=== PATIENT | male | born 1995 | race Two or more races ===

== ENCOUNTER 2024-09-05 11:51 | Emergency (ER) | payer SELFPAY ==
[2024-09-05 11:52] VITALS: BMI 27.2
[2024-09-05 12:06] VITALS: BP 175/111; PULSE 74; RESP 16; TEMP 37.2; O2SAT 97
--- NOTE | 2024-09-05 12:11 | XR_ITS ---
Examination: CT brain head without contrast. 2-D sagittal coronal reconstructions Date and time of exam:September 05, 2024 at 1250 hours INDICATIONS: Injury to the top of the head with laceration and head pain today CTDI: vol (mGy):50.4 DLP: (mGycm):1025 Technique: Multiple CT axial sections of the brain have been obtained, 5 mm slice thickness. Contrast has not been administered. 2-D sagittal, coronal reconstructions have been obtained Low dose protocols were performed. One or more of the following dose reduction techniques were used; automated exposure control, adjustment of the mA and/or KV according to patient size, use of iterative reconstruction technique. Findings: No significant ventricular enlargement. Intra-axial or extra-axial hemorrhage density is not seen. No mass effect or midline shift Basal cisterns are not remarkable. Fourth ventricle is midline. Cranial vault intact. Impression: Negative for acute hemorrhage, mass effect or midline shift
[2024-09-05 12:22] VITALS: BP 175/111; PULSE 74
[2024-09-05] MEDS: cloNIDine HCL 0.1 MG TABLET PO (12:22)
[2024-09-05] MEDS: ACETAMINOPHEN 500 MG TABLET 1000 MG PO (12:23)
[2024-09-05] MEDS: DIPHTH,PERTUSS(ACELL),TET VAC 0.5 ML SYR- ADULT IMi (12:23)
[2024-09-05 12:37] LABS: Basophils # (Auto) 0.1 Thou/mm3 (0.0-0.2); Basophils % (Auto) 1 % (0-2.5); Eosinophils % (Auto) 0 % (0-10); Hemoglobin 15.2 g/dL (13.5-16.0); Immature Granulocytes % (Auto) 0 % (0-0); Immature Granulocytes Auto 0.03 Thou/mm3 (0.00-0.00); Lymphocytes # (Auto) 1.3 Thou/mm3 (1.0-4.8); Lymphocytes % (Auto) 15 % (10-50); Mean Corpuscular HGB Conc 36.2 g/dl (31.0-37.0); Mean Corpuscular Volume 88 fL (80-100); Monocytes # (Auto) 0.8 Thou/mm3 (0.0-0.8); Monocytes % (Auto) 10 % (0-12); Neutrophils # (Auto) 6.4 Thou/mm3 (1.8-7.7); Neutrophils % (Auto) 74 % (37-80); Nucleated Red Blood Cell % 0 /100 WBC (0); Platelet Count 285 Thou/mm3 (140-440); RDW Standard Deviation 38.6 fL (35.1-43.9); Red Blood Count 4.75 Miln/mm3 (4.50-5.90); White Blood Count 8.6 Thou/mm3 (3.8-10.6)
[2024-09-05 13:03] LABS: Alanine Aminotransferase 50 U/L (10-49); Albumin, Serum 4.8 gm/dL (3.5-5.0); Albumin/Globulin Ratio 1.7 (1.2-2.2); Alkaline Phosphatase 88 U/L (46-116); Anion Gap 10 (7-16); Aspartate Amino Transferase 45 U/L (0-34); BUN/Creatinine Ratio 11 Ratio (12-20); Bilirubin,Total 0.6 mg/dL (0.3-1.2); Blood Urea Nitrogen 16 mg/dL (9-23); Calcium 9.1 mg/dL (8.3-10.6); Calcium (Corrected) 9.1 mg/dL (8.5-10.1); Carbon Dioxide 26.8 mMol/L (20.0-31.0); Chloride 104 mMol/L (98-107); Creatinine (Component) 1.5 mg/dL (0.6-1.3); Estimated Creatinine Clearance 75.7 mL/min (>60); Globulin 2.9 gm/dL (2.3-3.5); Glucose 105 mg/dL (74-106); Osmolality,Calculated 282 (275-295); Potassium 4.5 mMol/L (3.4-5.1); Sodium 141 mMol/L (136-145); Total Protein 7.7 gm/dL (5.7-8.2); eGFR > 60 See Note
[2024-09-05 13:39] VITALS: BP 170/99; PULSE 84; RESP 20; O2SAT 96
--- NOTE | 2024-09-05 13:40 | EDNOTE_ITS ---
<Statement entered by Tonya Daniels MD - 09/16/24 00:58> As co-signing physician, I was present and available for consult prn. I concur with the plan and care as documented by the midlevel provider. ED Head Injury RME/HPI General Chief complaint: Head Injury Stated complaint: LAC TO TOP OF HEAD THIS AM Time Seen by Provider: 09/05/24 12:12 Arrival date/time: 09/05/24 11:51 28-year-old male presents emerged department today for complaints of injury to his head patient reports he was building a chicken coop there are no other associated symptoms or aggravating factors no other modifying factors, patient denies taking medication before coming to ER today obtain a laceration to his scalp Limitations: no limitations Related Data Previous Rx's ?Medication ?Instructions ?Recorded amlodipine 5 mg tablet 5 mg PO QDAY #30 tabs Allergies Allergy/AdvReac Type Severity Reaction Status Date / Time Sulfa (Sulfonamide Allergy Unknown Verified 09/05/24 11:54 Antibiotics) Review of Systems Review of Systems Systems Reviewed: All systems reviewed, normal except as documented Constitutional Constitutional: Reports system reviewed and no additional complaints, except as documented, Denies fever(s) and Denies headache(s) Eyes Eyes: Reports system reviewed and no additional complaints, except as documented and Denies blurry vision ENT Ears, Nose, Mouth, and Throat: Reports system reviewed and no additional complaints, except as documented, Denies headache(s), Denies nasal congestion and Denies nasal discharge Cardiovascular Cardiovascular: Reports system reviewed and no additional complaints, except as documented, Denies chest pain and Denies dyspnea Respiratory Respiratory: Reports system reviewed and no additional complaints, except as documented, Denies chest congestion, Denies cough and Denies dyspnea Gastrointestinal Gastrointestinal: Reports system reviewed and no additional complaints, except as documented and Denies abdominal pain Integumentary/Breasts Skin/Breast: Reports system reviewed and no additional complaints, except as documented, Denies rash and Reports wounds (Laceration scalp) Neurologic Neurologic: Reports system reviewed and no additional complaints, except as documented, Reports as per HPI and Denies headache(s) Past Medical History Social History SMOKING STATUS: Never smoker ED Exam General Limitations: Present no limitations General appearance: Present alert and in no apparent distress Expanded Head Exam Head image: 2 1. Laceration scalp Eye Eye exam: Present normal appearance, PERRL and EOMI ENT ENT exam: Present normal exam, normal oropharynx and mucous membranes moist Neck Neck exam: Present normal inspection, full ROM and trachea midline Chest Chest inspection: Present normal inspection and symmetric chest wall rise Respiratory Respiratory exam: Present normal lung sounds bilaterally Cardiovascular Cardiovascular exam: Present regular rate, normal rhythm and normal heart sounds Abdominal Exam Abdominal exam: Present soft and normal bowel sounds Extremities Exam Extremities exam: Present normal inspection and full ROM Back Exam Back exam: Present normal inspection and full ROM Neurological Exam Neurological exam: Present alert, oriented X3 and CN II-XII intact Psychiatric Psychiatric exam: Present normal affect and normal mood Skin Skin exam: Present warm, dry and other (Laceration scalp) Course Quality Measures none Orders Category Date Time Status Stapler to Beside ONCE Care 09/05/24 12:11 Completed Wound Care NOW Care 09/05/24 12:[address] head/brain wo con Stat Exams 09/05/24 12:11 Completed CBC Stat Lab 09/05/24 12:30 Completed CMP [Comprehensive Metabolic Panel] Stat Lab 09/05/24 12:30 Completed Acetaminophen Tab [Tylenol ES Tab] Med 09/05/24 12:11 Discontinued 1,000 mg PO X1 ONE TET,DIP/PERT AC (Adult)-Tdap [Boostrix Adult (Tdap) Med 09/05/24 12:11 Discontinued Vacc] 0.5 ml IMI .ONCE ONE cloNIDine HCL [Catapres] Med 09/05/24 12:11 Discontinued 0.1 mg PO X1 ONE Vital Signs Vital signs: Vital Signs Temperature 99.0 F 09/05/24 12:06 Pulse Rate 74 09/05/24 12:06 Respiratory Rate 16 09/05/24 12:06 Blood Pressure 175/111 H 09/05/24 12:06 Pulse Oximetry (%) 97 09/05/24 12:06 Oxygen Delivery Method Room Air 09/05/24 12:06 O2 saturation 97% room air within normal limits Head Injury MDM Narrative MDM Narrative:: 28-year-old male presents emerged department today for complaints of injury to his head patient reports he was building a chicken coop there are no other associated symptoms or aggravating factors no other modifying factors, patient denies taking medication before coming to ER today obtain a laceration to his scalp On exam patient has laceration to his scalp approximately 7 cm wound irrigated copiously laceration pair with [address] scan of the head obtained no acute emergent findings noted Patient walks steady gait has no abnormal neurological findings Incidentally patient noted to have hypertension patient reports he does not follow-up with a doctor does not see a doctor and is unaware that he does have high blood pressure Patient given a dose of blood pressure medication which did improve symptoms Patient started on amlodipine patient is given an appointment to follow-up with outpatient resident clinic patient states he will follow-up today Patient instructed to go over to the resident clinic at this time patient given information on to get their patients states to go immediately Patient instructed to have madelyn removed in 10 days Patient data External records reviewed:: [facility] previous records Clinical information provided by:: patient Social determinants that could affect healthcare access:: none Patient has the following chronic illnesses:: None How is presenting disease/condition affected by chronic disease/condition?: no chronic disease Evaluation data The following diagnostics were reviewed and interpreted by me:: radiology exam(s) Lab and/or radiology exams considered but not ordered:: Radiology obtain Interpretation Summary: Given he Medications / Prescriptions Medications or Prescriptions considered but not ordered:: Given Medication administrations:: Medication Administration History Discontinued Medications Acetaminophen (Acetaminophen 500 Mg Tablet) 1,000 mg PO X1 ONE Stop: 09/05/24 12:12 Last Admin: 09/05/24 12:23 Dose: 1,000 mg Documented By: DO Clonidine (Clonidine Hcl 0.1 Mg Tablet) 0.1 mg PO X1 ONE Stop: 09/05/24 12:12 Last Admin: 09/05/24 12:22 Dose: 0.1 mg Documented By: DO Diphtheria/Tetanus/Acell Pertussis (Diphth,Pertuss(Acell),Tet Vac 0.5 Ml Syr- Adult) 0.5 ml IMi .ONCE ONE Stop: 09/05/24 12:12 Last Admin: 09/05/24 12:23 Dose: 0.5 ml Documented By: DO Given Consultations Consultation(s) initiated? (list below): No Diagnosis Differential diagnosis head injury: concussion without loss of consciousness, closed head injury, subdural hematoma and concussion with loss of consciousness Most likely diagnosis given after review of the tests above:: Laceration Admission Indicated Admission indicated?: not indicated Admission Request Was there a request for admission?: No Disposition Plan Disposition Plan: Discharge Discharge Attestation Discharge Attestation: The patient and all family members were given an opportunity to ask questions and understood the discharge instructions. Discharge instructions specifically effects, indications for sooner follow up or return to the emergency department, and the expected course of current diagnosis. Patient condition: Stable Discharge Plan Plan Patient Disposition: HOME (Self Care) Discharge Disposition comment: Stable Prescriptions/Referrals Prescriptions/Med Rec: New amlodipine 5 mg tablet 5 mg PO QDAY Qty: 30 0RF Referrals: [facility] [Outside] - 09/05/24 No Primary/Family,Physician [Primary Care Provider] - 09/08/24 Problem List Clinical Impression: Closed head injury, Laceration of scalp, Hypertension Patient/Caregiver Discharge Instructions Education Materials: ED Head Injury (Adult) Additional Instructions: Please follow up with your primary care doctor in the next 24-48hrs for any worsening symptoms return here immediately Please have madelyn removed in 10 days Print Language: Salvadorean Stand Alone Forms: Sarah Award Info., Patient Portal Info Letter PA/FLOWER Supervising Physician REYNALDO/FLOWER Supervising Physician: dr daniels
== END 2024-09-05 14:09 | disposition home or self-care (01) ==
PROVIDERS: Nurse Practitioner Primary Care; Emergency Provider Emergency Medicine
DX: S01.01XA Laceration without foreign body of scalp, initial encounter (principal); I10 Essential (primary) hypertension; S09.90XA Unspecified injury of head, initial encounter; Z23 Encounter for immunization
CPT/HCPCS: 12002; 36415; 70450; 80053; 85025; 90471; 90715; 99284; A9270

== ENCOUNTER 2024-09-08 14:27 | Outpatient (AMB) | payer SELFPAY ==
[2024-09-08 14:57] VITALS: BP 173/103; PULSE 56; RESP 18; TEMP 36.8; O2SAT 97; BMI 31.0
--- NOTE | 2024-09-08 14:57 | ACNOTE_ITS ---
Vital Signs 09/08/24 14:57 Height 1.75 m Height Method Stated Weight 95.311 kg Weight Measurement Method Standing Scale BMI 31.0 BP 173/103 H Blood Pressure Source Automatic Cuff Blood Pressure Location Right Upper Arm Position Sitting Respiration 18 Pulse 56 L Pulse Source Monitor Temp 98.2 F Temp Source Temporal Artery Scan Pulse Oximetry (%) 97 Oxygen Delivery Method Room Air Allergies/Meds Allergies & Medications Allergies Sulfa (Sulfonamide Antibiotics) Allergy (Unknown, Verified 09/08/24 15:01) Medication Reconciliation amlodipine 5 mg tablet 5 mg PO QDAY #30 tabs 09/08/24 [Rx] blood pressure test kit-medium #1 ea 09/08/24 [Rx] MA Intake Visit Data Collection New Patient or Established: Established Patient (seen at [facility] within 3 years) Seen by Clinical Staff ONLY (RN/MA): No Pain Present Currently: No Pain scale:: 0 Pain Scale Used: Wells-Beasley/Numerical Compliance Officer Required: No PCP or OBGYN visit in last 3 months: No Hx Now: No Do You Feel Safe at Home: Yes Authorities Contacted: N/A Smoking Status Smoking Status: Never smoker Immunization / Flu Flu Vaccine in the Last 12 Months: No Flu Vaccine Exclusion Criteria: No Exclusion Criteria Past Medical History Social History SMOKING STATUS: Smoking status: Never smoker Patient Portal Questionaires Social History Tobacco History Smoking Status: Never smoker Domestic Abuse History Do You Feel Safe at Home: Yes Review of Systems Report any current symptoms Only answer those that you have currently: Past Medical History Past Medical History Have you ever been diagnosed with any of the following: History of Present Illness HPI Narrative The patient is a 28 year old male with no significant past medical history was found to have HTN with BP 170/99 in the ED when he presented with lacerated head injury. PMH: None SHx: None Social Hx: Occasional drinker Family Hx: Positive for HTN, DM2 and Hyperlipidemia Meds: None He presented today for follow up on his hypertension. He reported no headache, dizziness, blurry vision, chest pain, SOB, any bowel or bladder symptoms or leg swelling. He also denied any fever or chills, nausea or vomiting. Review of Systems Review of Systems Systems Reviewed: All systems reviewed, normal except as documented Objective/Exam Narrative Physical exam: General: No acute distress, Alert and Oriented x 3 HEENT: Moist mucous membranes, oropharynx clear Neck: Supple, No masses, No JVD CVS: S1S2 Regular rate and rhythm, No murmurs, rubs or gallops Lungs: Clear to auscultation with no accessory use, no wheeze no rhonchi Abd: Soft, NT/ND, +BS, no organomegaly Ext: No edema, warm and well perfused Skin: No rash Psych: Appropriate mood and affect Assessment & Plan Diagnosis / Problem List (1) Hypertension: Status: Acute Assessment & Plan: He was found to have HTN with BP 170/99 in the ED His BP was 173/103 today. Has not taken any antihypertensive so far. Plan: -Started on amlodipine 5mg daily -Emphasized on dietary changes and weight loss -F/u on 2 weeks with CMP, Lipid panel, UA, XR chest and A1c level Plan The case was discussed with my attending Dr. Roby MD Orders: Orders Comprehensive Metabolic Panel 7 Days I10 - Essential (primary) hypertension Lipid Panel 5 Days I10 - Essential (primary) hypertension Ambulatory Hemoglobin A1C Today I10 - Essential (primary) hypertension Urinalysis 5 Days I10 - Essential (primary) hypertension XR chest 1V 5 Days I10 - Essential (primary) hypertension Office Procedures [facility] Level of Care Nursing/Assessment Patient Status: Established Patient Nursing Assessment/Reassessment: Medication Reconciliation, Update PMH in EMR and Vital Signs Coordination of Care: Complex Care and Chronic Disease 1-5, Consent,records obtained, informed consent, Education Simp Pt/Fam and Staff clarify orders Established Patient Charge Established Patient Point Assignment: 85 Established Patient Point Charge: EP Level 3 (80-115)
== END 2024-09-08 15:26 | disposition home or self-care (01) ==
PROVIDERS: Supervising Provider Internal Medicine; Visit Provider Student in an Organized Health Care Education/Training Program
DX: I10 Essential (primary) hypertension (principal)
CPT/HCPCS: 99213; G0463

== ENCOUNTER 2024-09-15 14:26 | Outpatient (AMB) | payer MEDICAID, SELFPAY ==
--- NOTE | 2024-09-15 15:14 | PD.RESCLINIC ---
Vital Signs 09/15/24 15:15 Height 1.75 m Height Method Measured Weight 94.12 kg Weight Measurement Method Standing Scale BMI 30.6 BP 121/80 Blood Pressure Source Automatic Cuff Blood Pressure Location Right Upper Arm Position Sitting Respiration 19 Pulse 74 Pulse Source Monitor Temp 98.3 F Pulse Oximetry (%) 95 Oxygen Delivery Method Room Air Allergies/Meds Allergies & Medications Allergies Sulfa (Sulfonamide Antibiotics) Allergy (Unknown, Verified 09/08/24 15:01) MA Intake Visit Data Collection New Patient or Established: Established Patient (seen at [facility] within 3 years) Seen by Clinical Staff ONLY (RN/MA): No Reason for Visit:: STAPLE REMOVAL ONLY Pain Present Currently: No Plaque Maker Required: No PCP or OBGYN visit in last 3 months: Yes Do You Feel Safe at Home: Yes Authorities Contacted: N/A Smoking Status Smoking Status: Never smoker Immunization / Flu Flu Vaccine in the Last 12 Months: Yes Flu Vaccine Exclusion Criteria: Already Received Past Medical History Social History SMOKING STATUS: Smoking status: Never smoker Patient Portal Questionaires Social History Tobacco History Smoking Status: Never smoker Domestic Abuse History Do You Feel Safe at Home: Yes Review of Systems Report any current symptoms Only answer those that you have currently: Past Medical History Past Medical History Have you ever been diagnosed with any of the following: History of Present Illness HPI Narrative The patient is a 28 year old male with no significant past medical history was found to have HTN with BP 170/99 in the ED when he presented with lacerated head injury. PMH: None SHx: None Social Hx: Occasional drinker Family Hx: Positive for HTN, DM2 and Hyperlipidemia Meds: None He presented today for follow up on his hypertension. He reported no headache, dizziness, blurry vision, chest pain, SOB, any bowel or bladder symptoms or leg swelling. He also denied any fever or chills, nausea or vomiting. 09/15/24: Patient came for follow up and madelyn removal from his scalp. He reported that he has been trying to cut back on drinking alcohol and reported to have mild dizziness after taking amlodipine. He is not checking his Blood pressure at home and was advised to take BP cuff and check his blood pressure atleast two times a day. His Blood pressure was stable on this visit.He denied any chest pain, SOB, Abdominal pain, N/V or any complaints. Labs were stable white count and hemoglobin.Electrolytes were unremarkable. Kidney functions showed mild ANGEL Cr 1.5. LFts were slightly elevated.He advised to get A1c and lipid panel checked. Advised to hydrate and drink atleast 8 glasses of water every day. He was recommended to continue taking amlodipine 5 mg and was recommended to chart his blood pressure twice every day.Advised to cut back on drinking alcohol and if his blood pressure remains stable he might come off from amlodipine. Advise to conitnue doing exercise and dietary modifications including low salt diet.Madelyn were removed from the scalp and his scalp tissue healed well. F/u after a month. Review of Systems Review of Systems Systems Reviewed: All systems reviewed, normal except as documented Objective/Exam Narrative Physical exam: GENERAL APPEARANCE: AxOx4, generally well-appearing male in no acute distress. HEENT: NC, AT. MMM. EOMI, clear conjunctiva, oropharynx clear. madelyn in scalp NECK: Supple without lymphadenopathy. No stiffness or restricted ROM. HEART: Regular rate and regular rhythm, normal S1/S2, no m/r/g LUNGS: CTAB, moving air well. No crackles or wheezes are heard. ABDOMEN: Soft, nontender, nondistended with good bowel sounds heard. BACK: No CVAT, no obvious deformity. EXTREMITIES: Without cyanosis, clubbing or edema. NEUROLOGICAL: Grossly nonfocal. Alert and oriented, moving all 4 extremities. CN not formally tested but appear grossly intact. Observed to ambulate with normal gait. Skin: Warm and dry without any rash. Psych: appropriate mood and affect Assessment & Plan Diagnosis / Problem List (1) Hypertension: Status: Acute Assessment & Plan: Patient came for follow up and madelyn removal from his scalp. He reported that he has been trying to cut back on drinking alcohol and reported to have mild dizziness after taking amlodipine. He is not checking his Blood pressure at home and was advised to take BP cuff and check his blood pressure atleast two times a day. His Blood pressure was stable on this visit.He denied any chest pain, SOB, Abdominal pain, N/V or any complaints. -Labs were stable white count and hemoglobin.Electrolytes were unremarkable. Kidney functions showed mild ANGEL Cr 1.5. LFts were slightly elevated. Plan: -Continue taking amlodipine 5 mg and was recommended to chart his blood pressure twice every day -Advised to cut back on drinking alcohol and if his blood pressure remains stable he might come off from amlodipine -Advise to conitnue doing exercise and dietary modifications including low salt diet -Thiamine and folic acid given -Advise to get A1c and lipid panel whenever he has time -Advised to hydrate and drink atleast 8 glasses of water every day. -F/u after a month Patient was seen and discussed with attending Physician, Dr Roby Cano MD PGY-2 Office Procedures [facility] Level of Care Nursing/Assessment Patient Status: Established Patient Nursing Assessment/Reassessment: BP Monitoring, Medication Reconciliation, Update PMH in EMR and Vital Signs Coordination of Care: Complex Care and Chronic Disease 1-5, Consent,records obtained, informed consent and Results/Orders obtained Established Patient Charge Established Patient Point Assignment: 80 Established Patient Point Charge: Level 3 (80-115)
[2024-09-15 15:15] VITALS: BP 121/80; PULSE 74; RESP 19; TEMP 36.8; O2SAT 95; BMI 30.6
== END 2024-09-15 15:47 | disposition home or self-care (01) ==
PROVIDERS: Visit Provider Student in an Organized Health Care Education/Training Program
DX: I10 Essential (primary) hypertension (principal); Z48.02 Encounter for removal of sutures; Z71.41 Alcohol abuse counseling and surveillance of alcoholic
CPT/HCPCS: 99213; G0463